=== PATIENT | male | born 1985 | race Caucasian/White ===

== ENCOUNTER → 2020-11-19 | Outpatient (CLI) | payer BC ==
--- NOTE | 2020-11-19 13:44 | KCIC ---
EXAM: Lumbar spine, 3 views. HISTORY: Pain. COMPARISON: None. FINDINGS: 3 views of the lumbar spine are obtained. There is lumbar levoscoliosis centered at L3. The re is no significant listhesis. The vertebral bodies are normal in height. There is slight disc space narrowing at the lumbosacral junction. There are incidental surgical clips overlying the right lower quadrant. IMPRESSION: 1. Mild lumbar scoliosis and slight disc space narrowing at the lumbosacral junction. 2. No acute osseous finding. Electronically signed by: Pratima Stokes MD (11/19/2020 1:42 PM) [facility]
== END ==
LOC: KCIC 11:12
PROVIDERS: ATTEND Family Medicine
DX: M48.07 Spinal stenosis, lumbosacral region (principal); M41.86 Other forms of scoliosis, lumbar region
CPT/HCPCS: 72100